=== PATIENT | male | born 1940 | race Caucasian/White ===

== ENCOUNTER → 2017-11-16 | Outpatient (CLI) | payer OTHER, BC ==
[~2017-11-16] MED LIST: AMARYL2 MG PO; AMARYL4 MG OR; AMOXICILLIN250 MG PO; ANUSOL-HC25 MG RECTAL; ASPIR 8181 MG PO; ASPIRIN EC81 M1 OR; BISACODYL SUPP10 MG RECTAL; BYSTOLIC 5 MG5 M1 PO; CENTRUM SILVER1 EAC2 PO; CITRATE OF MAG296 ML PO; COLACE100 MG PO; COREG6.25 MG PO; CYMBALTA30 MG PO; DEX4 GLUCOSE4 GM; DOXYCYCLINE 10100 MG PO; ECOTRIN325 MG PO; EXELON1 EAC1 TRANSDERM; GLUCAGON EMERGEN1 MG; HUMALOG100 UNIT/2; HYDROCODON-ACE1 EACH PO; JANUVIA100 MG OR; KEFLEX500 M1 PO; LANTUS SOL100 UNIT/1 SQ; LANTUS100 UNIT/M SUBQ; LEVEMIR100 UNIT/1 SUBQ; LIPITOR20 MG OR; LISINOPRIL10 MG OR; MAG-AL PLUS SUS30 ML PO; MOM PO; NAMENDA XR28 MG PO; NORVASC 5 MG TAB5 MG PO; NORVASC10 MG PO; NYSTATIN 1100000 U/M PO; PAXIL10 MG; PRED FORTE 1% EY5 M1 OP; REGLAN 10 MG TA10 MG PO; TOPROL XL25 MG OR; TRANSDERM-SCO1 PATC1 TD; TYLENOL325 MG PO; VITAMIN B-1100 M1 PO; VOLTAREN 0.1% EY5 M1 OP; XARELTO15 MG PO; ZOFRAN ODT4 MG SUBLING
== END ==
LOC: RAD 17:47
DX: R05 Cough (principal)

== ENCOUNTER 2017-11-21 12:33 | Emergency (ER) | payer OTHER, BC ==
[~2017-11-21] VITALS: Ht 170.2 cm; Wt 95.3 kg
[~2017-11-21 12:33] MED LIST changes: -ANUSOL-HC25 MG RECTAL; -ASPIR 8181 MG PO; -CITRATE OF MAG296 ML PO; -KEFLEX500 M1 PO; -LANTUS100 UNIT/M SUBQ; -NAMENDA XR28 MG PO
[2017-11-21] MEDS ORDERED: COLACE100 MG PO (13:20)
[2017-11-21] MEDS ORDERED: CITRATE OF MAG296 ML PO (13:32)
[2017-11-21] MEDS ORDERED: NAMENDA XR28 MG PO (13:45)
[2017-11-21] MEDS ORDERED: ASPIR 8181 MG PO (13:45)
[2017-11-21] MEDS ORDERED: LANTUS100 UNIT/M SUBQ (13:46)
[2017-11-21] MEDS ORDERED: ANUSOL-HC25 MG RECTAL (13:48)
[2017-11-21 13:57] VITALS: BP 120/56
== END 2017-11-21 13:58 | disposition home or self-care (01) ==
LOC: ER 12:33
DX: K62.89 Other specified diseases of anus and rectum (principal); K59.00 Constipation, unspecified; I10 Essential (primary) hypertension; E11.9 Type 2 diabetes mellitus without complications; E78.00 Pure hypercholesterolemia, unspecified; F10.99 Alcohol use, unspecified with unspecified alcohol-induced disorder; Z79.4 Long term (current) use of insulin; Z88.8 Allergy status to other drugs, medicaments and biological substances; Z90.49 Acquired absence of other specified parts of digestive tract

== ENCOUNTER → 2017-11-30 | Outpatient (CLI) | payer OTHER, BC ==
[~2017-11-30] MED LIST changes: +ANUSOL-HC25 MG RECTAL; +ASPIR 8181 MG PO; +CITRATE OF MAG296 ML PO; +KEFLEX500 M1 PO; +LANTUS100 UNIT/M SUBQ; +NAMENDA XR28 MG PO
== END ==
LOC: CAT 10:08
DX: N40.1 Benign prostatic hyperplasia with lower urinary tract symptoms (principal); E11.9 Type 2 diabetes mellitus without complications; I10 Essential (primary) hypertension; I25.10 Atherosclerotic heart disease of native coronary artery without angina pectoris; K21.9 Gastro-esophageal reflux disease without esophagitis; I63.9 Cerebral infarction, unspecified; Z90.49 Acquired absence of other specified parts of digestive tract

== ENCOUNTER 2017-12-01 11:04 | Inpatient (IN) | payer OTHER, BC ==
[~2017-12-01] VITALS: Ht 172.7 cm; Wt 88.0 kg
--- NOTE | ~2017-12-01 | HC ---
[facility] [place] [address] CONSULTATION Name: GALILEO MARTIN III Room #: 361-P [facility] IN ..#: [id number] Admission: 12/01/17 Attend Phys: Ricky Hastings MD Discharge: Date of : 42 Report #: [id number] THIS REPORT FOR: //name// CC: Mateus Hastings DATE OF SERVICE: 12/01/2017 REASON FOR CONSULTATION: Prostatic abscess. HISTORY OF PRESENT ILLNESS: The patient is a 77-year-old with underlying history of diabetes and mild dementia, has had issues over the last 10 days to 2 weeks of rectal discomfort. Had symptoms of urgency. was unclear whether he is having some dysuria also. The patient was unable to give me any reasonable history. He has had further evaluation including cathartics followed by colonoscopy. It was noted that he had a markedly enlarged prostate at the time of his colonoscopy. He had evidence of polyps which were removed. No fever, chills or sweats. No blood in the stool or his urine noted. No prior history of BPH. It seems that most of his symptoms were rectal related. Yesterday, a CT scan of his abdomen and pelvis, which showed evidence of enlarged prostate with suspected prostatic abscess. ALLERGIES: ETHER. MEDICATIONS: As noted on his MAR including Tylenol, Exelon patch, docusate sodium suppository, Amaryl, Coreg, Cymbalta, Lipitor, Lantus insulin, aspirin, Namenda, multivitamin. PAST MEDICAL HISTORY: Cholecystectomy, appendectomy, coronary bypass grafting, carpal tunnel release on the left, hypertension, pneumonia, diabetes, right carpal tunnel release, hyperlipidemia, nonfunctioning right kidney, left cataract, stroke, dementia. FAMILY HISTORY: Noncontributory. SOCIAL HISTORY: Nonsmoker, minimal alcohol use. REVIEW OF SYSTEMS: No headache or cardiopulmonary issues. No abdominal pain. Has been anorexic. No rash. PHYSICAL EXAMINATION: VITAL SIGNS: He is afebrile and hemodynamically stable. GENERAL: He is alert and cooperative. He was confused. HEENT: Unremarkable. NECK: Supple. SKIN: Unremarkable. [facility] [address] [place] [address] CONSULTATION Name: GALILEO MARTIN III Room #: 361-P [facility] IN [facility].#: [id number] Admission: 12/01/17 Attend Phys: Ricky Hastings MD Discharge: Date of : 42 Report #: [id number] LYMPH: Unremarkable. LUNGS: Clear. HEART: Regular without murmur. ABDOMEN: Mildly distended. Mild lower abdominal tenderness. No guarding or rebound. No mass. No CVA tenderness. RECTAL: With markedly enlarged prostate, which was fluctuant. The area was tender. Anus otherwise unremarkable. EXTREMITIES: Unremarkable. NEUROLOGIC: Nonfocal. LABORATORY STUDIES: Sodium 137, potassium 4.4, bicarb of 28, creatinine 1.9. Hemoglobin 12.6, platelet count 265,000, WBC 16 with 81% segs, 13% lymphs. Urinalysis greater than 25 wbc's, 3-10 rbc's, and 1-9 bacteria. Urine culture is pending. Postvoid residual [address] scan of the pelvis on 11/30/2017 revealed an enlarged prostate with a 1.8 x 2.7 cm right lobe abscess. IMPRESSION: Rectal pain. I am suspecting is related to prostatitis with abscess. The patient has leukocytosis and worsening mentation. He has renal failure most of which I suspect is chronic due to his nonfunctioning right kidney. The patient with underlying diabetes. PLAN: Recommend broad antibiotic coverage, adjusted for his renal failure to include Zosyn. Have Urology assist with drainage of the abscess. If they are unable to perform, would then defer to Interventional Radiology. We will obtain another urine culture post-prostatic examination. We will obtain blood cultures. Adjust his antibiotics pending these results. I have discussed the case with patient's at the bedside and nursing in attendance. Call placed to Urology for their assistance. <ELECTRONICALLY SIGNED> By: Dinh Moser MD 12/02/17 1715 03 [id number] Dinh Moser MD /nt
--- NOTE | ~2017-12-01 | H ---
[facility] [place] [address] HISTORY AND PHYSICAL Name: GALILEO MARTIN III Room #: 361-P ADM IN ..#: [id number] Admission: 12/01/17 Attend Phys: Ricky Hastings MD Discharge: Date of : 41 Report #: [id number] THIS REPORT FOR: //name// CC: Mateus Hastings DATE OF SERVICE: 12/01/2017 CHIEF COMPLAINT: Rectal pain. HISTORY OF PRESENT ILLNESS: The patient is a 77-year-old gentleman with dementia, who was admitted from home to the office with rectal pain. He underwent a CT of the abdomen and pelvis on 11/30/2017, which revealed what appears to be a prostatic abscess. He received IV antibiotics overnight and is being assessed by Dr. Webb from Urology. PAST MEDICAL HISTORY: Diabetes type 2, coronary artery disease, hypertension, osteoarthritis, rotator cuff syndrome, GERD, cerebellar stroke, mild cognitive impairment, mild dementia, BPH. PAST SURGICAL HISTORY: He has had cardiac bypass, cholecystectomy. FAMILY HISTORY: Noncontributory. SOCIAL HISTORY: No chronic alcohol or tobacco use. ALLERGIES: VALIUM. MEDICATIONS: Coreg 6.25 mg twice a day, Cymbalta 30 mg. Glimepiride 2 mg, Lantus 24 units at bedtime, galantamine 16 mg daily, Humalog 5 units with meals if over 325. Aspirin, Lipitor. Unclear whether he is taking Xarelto at home. REVIEW OF SYSTEMS: He is unable to give review. OBJECTIVE: VITAL SIGNS: Temperature 36.4, pulse 70, respirations 19, blood pressure was 159/69. GENERAL: He is awake, lying in bed, pleasantly confused, seems to recognize his , no distress. HEAD AND NECK: Unremarkable. LUNGS: Clear. HEART: Regular. ABDOMEN: Soft, normoactive bowel sounds. No rebound or guarding. EXTREMITIES: No edema. CT and lab work reviewed. [facility] [address] [place] [address] HISTORY AND PHYSICAL Name: GALILEO MARTIN III Room #: [address] [place] [address]#: [id number] Admission: 12/01/17 Attend Phys: Ricky Hastings MD Discharge: Date of : 41 Report #: [id number] ASSESSMENT: 1. Prostatic abscess. 2. Chronic kidney disease, stage 3. 3. Unilateral kidney. 4. Diabetes type 2. 5. Hypertension. 6. Senile dementia. PLAN: Antibiotics have been ordered, and I discussed the case with Dr. Dinh Moser and Dr Dmitry Webb. Workup plans are being formulated for now. We will hold any anticoagulation or antiplatelet treatment in the event he needs a surgical intervention. <ELECTRONICALLY SIGNED> By: Ricky Hastings MD 12/02/17 1300 0911 0926 Ricky Hastings MD /nt
--- NOTE | ~2017-12-01 | D ---
[facility] [place] [address] DISCHARGE SUMMARY Name: GALILEO MARTIN III Room #: 361-P ADM IN M.R.#: [id number] Admission: 12/01/17 Attend Phys: Ricky Hastings MD Discharge: Date of : 41 Report #: [id number] THIS REPORT FOR: //name// CC: Mateus Hastings FINAL DIAGNOSES: 1. Prostate abscess. 2. Hypertension. 3. Diabetes type 2. HOSPITAL COURSE: The patient was admitted with abdominal pain and an outpatient CT had revealed an abscess of the prostate. ID and Neurology assessed him and ultimately the plan was for Interventional Radiology to perform an aspiration. Please see that separately dictated report. Cultures grew Staph aureus. He was treated with antibiotics accordingly. With supportive and medical care, his symptoms improved significantly. His white count normalized. Mental status returned to baseline and his pain decreased. He was up and active at his baseline. DISPOSITION: To be discharged home to resume diabetic diet, activity as tolerated, all his usual medications plus Keflex 1 gram b.i.d. for 10 days and to follow up in the office in 1 week. <ELECTRONICALLY SIGNED> By: Ricky Hastings MD 12/06/17 1256 1238 1251 Ricky Hastings MD /nt
[~2017-12-01 11:04] MED LIST changes: -KEFLEX500 M1 PO
[2017-12-01 12:01] VITALS: BP 129/64
[2017-12-01 13:38] LABS: BASOPHILS 0.3 % (0.0-2.0); EOSINOPHILS 1.1 % (0.0-3.0); HEMATOCRIT 39.1 % (42.0-52.0); HEMOGLOBIN 12.6 gm/dL (14.0-18.0); LYMPHOCYTES 13.2 % (24.0-44.0); MCH 29.8 pg (26.0-34.0); MCHC 32.2 g/dL (28.0-37.0); MCV 92.7 fL (80.0-100.0); MONOCYTES 3.7 % (1.0-8.0); PLATELET COUNT 265 thou/uL (150-400); POLYS 81.7 % (36.0-66.0); RBC 4.21 mil/uL (4.50-6.00); RDW 13.7 % (10.5-14.5)
[2017-12-01 13:48] LABS: CALCIUM 9.9 mg/dL (8.5-10.1); CREATININE 1.9 mg/dL (0.7-1.3); POTASSIUM 4.4 mmol/L (3.5-5.1)
[2017-12-01 15:37] LABS: URINE BILIRUBIN NEGATIVE (Negative); URINE BLOOD 1+ (Negative); URINE CLARITY CLOUDY; URINE COLOR YELLOW; URINE GLUCOSE-RANDOM* TRACE (Negative); URINE KETONES NEGATIVE (Negative); URINE NITRITE-REFLEX NEGATIVE (Negative); URINE PROTEIN (DIPSTICK) 1+ (Negative); URINE SPECIFIC GRAVITY 1.025 (1.005-1.035); URINE UROBILINOGEN 0.2 E.U./dl (0.2-1.0)
[2017-12-01 15:43] LABS: URINE LEUKOCYTES-REFLEX 3+ (Negative)
[2017-12-01 15:52] LABS: URINE WBC-REFLEX >25 Many /HPF (0-5)
[2017-12-01 15:53] LABS: BACTERIA-REFLEX 1-9 Few /HPF (None Seen); CASTS None Seen /LPF (None Seen); CRYSTALS None Seen /LPF (None Seen); SQUAMOUS None Seen /LPF (0-3); URINE RBC 3-10 Few /HPF (0-2)
[2017-12-01 16:00] VITALS: BP 110/53
[2017-12-01 19:56] VITALS: BP 131/58
[2017-12-02] VITALS (9 sets, daily range): BP systolic 94–176; BP diastolic 44–98
[2017-12-02 06:28] LABS: ABSOLUTE NEUTROPHILS 13.2 thou/uL (1.4-8.2); BASOPHILS 0.5 % (0.0-2.0); EOSINOPHILS 2.5 % (0.0-3.0); HEMATOCRIT 36.1 % (42.0-52.0); HEMOGLOBIN 11.9 gm/dL (14.0-18.0); LYMPHOCYTES 15.2 % (24.0-44.0); MCH 30.5 pg (26.0-34.0); MCV 92.5 fL (80.0-100.0); MONOCYTES 4.8 % (1.0-8.0); PLATELET COUNT 258 thou/uL (150-400); RDW 13.8 % (10.5-14.5); WBC 17.1 thou/uL (4.0-11.0)
[2017-12-02 06:35] LABS: CALCIUM 9.2 mg/dL (8.5-10.1); CREATININE 1.7 mg/dL (0.7-1.3); POTASSIUM 4.2 mmol/L (3.5-5.1)
[2017-12-02 06:37] LABS: INR 1.1; PROTIME 11.1 Seconds (9.3-11.4)
[2017-12-03 04:00] VITALS: BP 131/53
[2017-12-03 05:49] LABS: HEMATOCRIT 31.8 % (42.0-52.0); HEMOGLOBIN 10.7 gm/dL (14.0-18.0); MCHC 33.6 g/dL (28.0-37.0); MCV 92.5 fL (80.0-100.0); RBC 3.44 mil/uL (4.50-6.00); RDW 14.1 % (10.5-14.5); WBC 15.4 thou/uL (4.0-11.0)
[2017-12-03 06:02] LABS: CALCIUM 8.8 mg/dL (8.5-10.1); CREATININE 1.7 mg/dL (0.7-1.3); POTASSIUM 4.2 mmol/L (3.5-5.1)
[2017-12-03 07:30] VITALS: BP 121/70
[2017-12-03 11:12] VITALS: BP 139/61
[2017-12-03 16:02] VITALS: BP 146/64
[2017-12-03 19:20] VITALS: BP 112/68
[2017-12-04 03:15] VITALS: BP 145/85
[2017-12-04 03:43] LABS: HEMATOCRIT 31.2 % (42.0-52.0); HEMOGLOBIN 10.4 gm/dL (14.0-18.0); MCH 30.8 pg (26.0-34.0); MCHC 33.4 g/dL (28.0-37.0); MCV 92.3 fL (80.0-100.0); RBC 3.38 mil/uL (4.50-6.00); RDW 13.9 % (10.5-14.5); WBC 13.4 thou/uL (4.0-11.0)
[2017-12-04 03:53] LABS: CALCIUM 8.6 mg/dL (8.5-10.1); CREATININE 1.6 mg/dL (0.7-1.3); POTASSIUM 4.6 mmol/L (3.5-5.1)
[2017-12-04 08:00] VITALS: BP 140/67
[2017-12-04 11:57] VITALS: BP 145/65
[2017-12-04 16:00] VITALS: BP 146/68
[2017-12-04 19:40] VITALS: BP 139/68
[2017-12-05 04:10] VITALS: BP 146/64
[2017-12-05 07:30] VITALS: BP 148/80
[2017-12-05 08:46] LABS: HEMATOCRIT 32.3 % (42.0-52.0); HEMOGLOBIN 10.7 gm/dL (14.0-18.0); MCH 30.6 pg (26.0-34.0); MCHC 33.1 g/dL (28.0-37.0); MCV 92.4 fL (80.0-100.0); RBC 3.49 mil/uL (4.50-6.00); RDW 14.2 % (10.5-14.5); WBC 13.5 thou/uL (4.0-11.0)
[2017-12-05 08:56] LABS: CALCIUM 8.9 mg/dL (8.5-10.1); CREATININE 1.6 mg/dL (0.7-1.3); POTASSIUM 4.2 mmol/L (3.5-5.1)
[2017-12-05 12:00] VITALS: BP 142/65
[2017-12-05 15:40] VITALS: BP 150/75
[2017-12-05 19:23] VITALS: BP 145/54
[2017-12-06 04:00] VITALS: BP 149/61
[2017-12-06 05:52] LABS: BASOPHILS 0.6 % (0.0-2.0); EOSINOPHILS 5.5 % (0.0-3.0); HEMATOCRIT 29.6 % (42.0-52.0); HEMOGLOBIN 10.1 gm/dL (14.0-18.0); LYMPHOCYTES 23.4 % (24.0-44.0); MCH 31.1 pg (26.0-34.0); MCV 91.4 fL (80.0-100.0); MONOCYTES 6.8 % (1.0-8.0); PLATELET COUNT 198 thou/uL (150-400); POLYS 63.7 % (36.0-66.0); RBC 3.23 mil/uL (4.50-6.00); RDW 14.2 % (10.5-14.5); WBC 9.4 thou/uL (4.0-11.0)
[2017-12-06 06:19] LABS: CALCIUM 8.7 mg/dL (8.5-10.1); CREATININE 1.4 mg/dL (0.7-1.3); POTASSIUM 4.1 mmol/L (3.5-5.1)
[2017-12-06 08:16] VITALS: BP 161/69
[2017-12-06 11:04] VITALS: BP 159/66
[2017-12-06] MEDS ORDERED: KEFLEX500 M1 PO (12:08)
[2017-12-06 16:25] VITALS: BP 160/74
[2017-12-06 20:40] VITALS: BP 144/63
[2017-12-07 04:20] VITALS: BP 137/70
[2017-12-07 08:07] VITALS: BP 151/72
[2017-12-07 11:27] VITALS: BP 158/70
[2017-12-07 16:17] VITALS: BP 153/69
[2017-12-07 19:26] VITALS: BP 119/59
[2017-12-08] VITALS (15 sets, daily range): BP systolic 96–176; BP diastolic 56–99
[2017-12-08 05:13] LABS: HEMATOCRIT 34.5 % (42.0-52.0); HEMOGLOBIN 11.5 gm/dL (14.0-18.0); MCH 30.6 pg (26.0-34.0); MCHC 33.4 g/dL (28.0-37.0); MCV 91.9 fL (80.0-100.0); RBC 3.76 mil/uL (4.50-6.00); RDW 14.1 % (10.5-14.5); WBC 9.7 thou/uL (4.0-11.0)
[2017-12-08 05:30] LABS: CALCIUM 9.2 mg/dL (8.5-10.1); CREATININE 1.6 mg/dL (0.7-1.3); POTASSIUM 4.2 mmol/L (3.5-5.1)
[2017-12-09 06:42] VITALS: BP 148/74
[2017-12-09 08:00] VITALS: BP 148/74
[2017-12-09 08:43] LABS: HEMATOCRIT 35.9 % (42.0-52.0); HEMOGLOBIN 11.6 gm/dL (14.0-18.0); MCH 29.9 pg (26.0-34.0); MCHC 32.3 g/dL (28.0-37.0); MCV 92.7 fL (80.0-100.0); RBC 3.87 mil/uL (4.50-6.00); RDW 13.9 % (10.5-14.5); WBC 16.6 thou/uL (4.0-11.0)
[2017-12-09 08:50] LABS: CALCIUM 9.3 mg/dL (8.5-10.1); CREATININE 1.6 mg/dL (0.7-1.3); POTASSIUM 4.6 mmol/L (3.5-5.1)
[2017-12-09 09:50] VITALS: BP 148/74
[2017-12-09 12:26] VITALS: BP 105/66
== END 2017-12-09 15:20 | disposition home or self-care (01) | DRG 713 ==
LOC: 3W 11:04 → ENTRNSPT 12-09 15:11 → EDTRNSPTSTS 12-09 15:13 → 3W 12-09 15:20
PROVIDERS: Internal Medicine; Internal Medicine Geriatric Medicine; Specialist; Urology
PROC: 0V9 Male Reproductive System, Drainage (ICD-10-PCS; 2017-12-02)
PROC: 0V508ZZ Destruction of Prostate, Via Natural or Artificial Opening Endoscopic (ICD-10-PCS; principal; 2017-12-08)
DX: N41.2 Abscess of prostate (principal); G92 Toxic encephalopathy; N39.0 Urinary tract infection, site not specified; R65.10 Systemic inflammatory response syndrome (SIRS) of non-infectious origin without acute organ dysfunction; N40.0 Benign prostatic hyperplasia without lower urinary tract symptoms; E78.5 Hyperlipidemia, unspecified; K21.9 Gastro-esophageal reflux disease without esophagitis; M19.90 Unspecified osteoarthritis, unspecified site; N18.3 Chronic kidney disease, stage 3 (moderate); I12.9 Hypertensive chronic kidney disease with stage 1 through stage 4 chronic kidney disease, or unspecified chronic kidney disease; E11.22 Type 2 diabetes mellitus with diabetic chronic kidney disease; G30.9 Alzheimer's disease, unspecified; F02.80 Dementia in other diseases classified elsewhere, unspecified severity, without behavioral disturbance, psychotic disturbance, mood disturbance, and anxiety; Z98.42 Cataract extraction status, left eye; Z86.73 Personal history of transient ischemic attack (TIA), and cerebral infarction without residual deficits; Z88.8 Allergy status to other drugs, medicaments and biological substances; Z90.49 Acquired absence of other specified parts of digestive tract; Z95.1 Presence of aortocoronary bypass graft
CPT/HCPCS: 10879; 50010; 50101; 50455; 56815; 57006; 62110; 62900; 70005

== ENCOUNTER 2017-12-15 11:58 | Inpatient (IN) | payer OTHER, BC ==
[~2017-12-15] VITALS: Ht 167.6 cm; Wt 81.6 kg
--- NOTE | ~2017-12-15 | D ---
[facility] [place] [address] DISCHARGE SUMMARY Name: GALILEO MARTIN III Room #: 429-P ADM IN .R.#: [id number] Admission: 12/15/17 Attend Phys: Mojgan Paige Discharge: Date of : 41 Report #: [id number] THIS REPORT FOR: //name// CC: Mateus Moser FINAL DIAGNOSES: 1. Orthostatic hypotension. 2. Dementia of Alzheimer's type. 3. Hypertension. 4. Diabetes type 2. 5. Chronic kidney disease. HOSPITAL COURSE: The patient was admitted after a near syncope episode at home. Telemetry echo and carotid Dopplers were unremarkable. He was found to have some mild orthostatic hypotension. I lowered his Coreg 3.125 mg twice a day and encouraged oral intake. Other medications were continued. He had no other interval complications. PHYSICAL EXAMINATION: GENERAL: On the day of discharge, he is resting comfortably in bed. VITAL SIGNS: Blood pressure was approximately 150/90 lying, but 100/70 sitting. LUNGS: Clear. HEART: Regular. ABDOMEN: Soft, normoactive bowel sounds. EXTREMITIES: No edema. DISPOSITION: He will be discharged to home with diabetic diet, activity as tolerated, resume all medications, but decrease Coreg to 6.25 mg 1/2 tablet twice a day. Follow up with Dr. Moser in a week. <ELECTRONICALLY SIGNED> By: Ricky Hastings MD 12/19/17 1256 1211 1231 MD le Rivero
--- NOTE | ~2017-12-15 | 2DMMODE ---
[facility] [address] [place] [address] 2 D/M-MODE ECHOCARDIOGRAM Name: GALILEO MARTIN III Room #: 429-P [facility] IN [facility].#: [id number] Admission: 12/15/17 Attend Phys: Mateus Oliveira Discharge: Date of : 42 Date of Service: 12/16/17 1153 Report #: [id number] THIS REPORT FOR: //name// APPROVED REPORT Study performed: 12/16/2017 11:22:56 EXAM: Comprehensive 2D, Doppler, and color-flow Echocardiogram Patient Location: Echo lab Room #: 429 Status: routine BSA: 1.91 HR: 66 bpm BP: 168/71 mmHg Rhythm: NSR Other Information Study Quality: Adequate Indications Syncope. Hx: CABG, CVA, HTN, HLP, DM 2D Dimensions RVDd: 41.00 mm LVEF(%): 67.72 (>50%) IVSd: 12.56 (7-11mm) LVOT Diam: 21.29 (18-24mm) LVDd: 48.22 mm PWd: 12.03 (7-11mm) Ascending Ao: 35.32 (22-36mm) LVDs: 30.03 (25-40mm) Aortic Root: 35.87 mm Garsia's LVEF: 67.72 % Volumes Left Atrial Volume (Systole) Single Plane 4CH: 59.68 mL Single Plane 2CH: 39.19 mL LA ESV Index: 28.00 mL/m2 Aortic Valve AoV Peak Axel.: 1.33 m/s AO Peak Gr.: 7.11 mmHg LVOT Max P.67 mmHg LVOT Max V: 0.96 m/s MEAGAN Vmax: 2.56 cm2 Mitral Valve E/A Ratio: 0.8 MV Decel. Time: 314.28 ms [facility] [place] [address] 2 D/M-MODE ECHOCARDIOGRAM Name: GALILEO MARTIN YVON Room #: 429-P [facility]..#: [id number] Admission: 12/15/17 Attend Phys: Mateus Oliveira Discharge: Date of : 42 Date of Service: 12/16/17 1153 Report #: [id number] MV E Max Axel.: 0.58 m/s MV A Axel.: 0.69 m/s MV PHT: 91.14 ms IVRT: 87.66 ms Pulmonary Valve PV Peak Axel.: 1.04 m/s PV Peak Gr.: 4.31 mmHg Pulmonary Vein P Vein S: 0.85 m/s P Vein D: 0.53 m/s P Vein S/D Ratio: 1.60 Tricuspid Valve TR Peak Axel.: 2.81 m/s RAP Estimate: 5.00 mmHg TR Peak Gr.: 31.49 mmHg PA Pressure: 37.00 mmHg Left Ventricle The left ventricle is normal size. There is normal LV segmental wall motion. Mild concentric left ventricular hypertrophy. Left ventricular systolic function is normal. LVEF is 60-65%. Mild diastolic dysfunction is present (impaired relaxation pattern). Right Ventricle The right ventricle is normal size. The right ventricular systolic function is normal. Atria The left atrium size is normal. The right atrium size is normal. Aortic Valve Aortic valve is milldly thickened and calcified. No aortic regurgitation is present. There is no aortic valvular stenosis. Mitral Valve The mitral valve is normal in structure. Trace mitral regurgitation. Tricuspid Valve The tricuspid valve is normal in structure. Mild tricuspid regurgitation. Estimated PAP is 35-40mmHg. [address] [address] 2 D/M-MODE ECHOCARDIOGRAM Name: GALILEO MARTIN III Room #: 429-P [facility] IN ..#: [id number] Admission: 12/15/17 Attend Phys: Mateus Oliveira Discharge: Date of : 42 Date of Service: 12/16/17 1153 Report #: [id number] Pulmonic Valve The pulmonary valve is normal in structure. Mild pulmonic regurgitation. Great Vessels The aortic root is normal in size. The ascending aorta is normal in size. IVC is normal in size and collapses >50% with inspiration. Pericardium There is no pericardial effusion. <Conclusion> The left ventricle is normal size. LVEF is 60-65%. Mild diastolic dysfunction is present (impaired relaxation pattern). The right ventricle is normal size. The left atrium size is normal. Aortic valve is milldly thickened and calcified. There is no aortic valvular stenosis. Trace mitral regurgitation. Mild tricuspid regurgitation. Estimated PAP is 35-40mmHg. The aortic root is normal in size. There is no pericardial effusion. <ELECTRONICALLY SIGNED> By: Jose Jackson MD, FACC 12/16/17 1153 1153 1153 Jose Jackson MD, FACC /INF
--- NOTE | ~2017-12-15 | H ---
[facility] [place] [address] HISTORY AND PHYSICAL Name: GALILEO MARTIN III Room #: 429-P ADM IN M.R.#: [id number] Admission: 12/15/17 Attend Phys: Mojgan Paige Discharge: Date of : 41 Report #: [id number] THIS REPORT FOR: //name// CC: Mateus Moser DATE OF SERVICE: 12/15/2017 CHIEF COMPLAINT: Weakness and a fainting episode. HISTORY OF PRESENT ILLNESS: The patient is a 77-year-old gentleman who came to the Emergency Room with his after what sounds to be a near syncope episode at home. 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 She said he had been lying in bed as she was preparing for work. His noted that when he came into the bathroom, he had sort of a glazed look on his face and appeared unsteady. She handed the medications to him and he began to drop them on the floor. He was not talking, but his eyes were open, but he was not focused. His grabbed him as it appears that she thought he was going to fall and eventually, she helped lower him to the floor. She thinks there may have just been a minute or two where he was not verbally responding, although alert. She does not feel that he totally lost consciousness during this episode. However, he was very weak and she brought him to the Emergency Room. He was hospitalized 1 week ago for a prostate abscess due to methicillin-sensitive Staphylococcus aureus. He had a needle aspiration followed by modified TURP procedure by Urology. He was discharged home about a week ago with oral antibiotics. PAST MEDICAL HISTORY: Cerebrovascular disease with prior stroke about 2 years ago, vascular dementia, hypertension, diabetes type 2, dyslipidemia and coronary artery disease. PAST SURGICAL HISTORY: Cardiac bypass in 2005, carpal tunnel release, cholecystectomy and appendectomy. He had a colonoscopy in November of this year. FAMILY HISTORY: Unknown. SOCIAL HISTORY: He is and lives with his . No chronic alcohol or tobacco use. ALLERGIES: ETHER AND DIAZEPAM. MEDICATIONS: Keflex, Namenda, aspirin, Lantus, Lipitor, Cymbalta, Coreg, Amaryl and Exelon patch. REVIEW OF SYSTEMS: He denies any headache, chest pain, shortness of breath or [facility] [address] [place] [address] HISTORY AND PHYSICAL Name: GALILEO MARTIN III Room #: 429-P [facility] IN [facility]#: [id number] Admission: 12/15/17 Attend Phys: Mojgan Paige Discharge: Date of : 42 Report #: [id number] abdominal pain, but otherwise, is pleasantly confused. PHYSICAL EXAMINATION: VITAL SIGNS: Temperature 36.8, pulse 86, respirations 18, blood pressure 168/71 and O2 sat 96% on room air. GENERAL: He is awake and alert, in no distress. HEAD AND NECK: Unremarkable. LUNGS: Clear. HEART: Regular. ABDOMEN: Soft. Normoactive bowel sounds. EXTREMITIES: No edema. NEUROLOGIC: He moves all extremities equally. Global strength appears intact, 5/5. He is alert, seems to recognize me. He answers questions appropriately, but not oriented to the date, place or situation. LABORATORY DATA: Blood sugars are between 150 and 350. Urinalysis had some blood, red cells and a few white cells. White count is normal, hemoglobin normal. Creatinine 1.7. Albumin 3.1. ASSESSMENT: 1. Syncope. 2. Chronic kidney disease, stage 3. 3. Hypertension. 4. Diabetes type 2. 5. Senile dementia, probably vascular type. 6. Cerebrovascular disease with history of stroke 2 years ago. 7. Recent prostate abscess. 8. Mild protein-calorie malnutrition. Albumin 3.1. PLAN: I will continue his medications from home. I spoke to his at the bedside. So far telemetry overnight has been unremarkable. I will ask for an echocardiogram and carotid Dopplers to ensure no other lesion precipitating possible syncope. He continues with oral antibiotics from last week. If no other new vascular episode or vascular process identified, then could anticipate an early discharge home. <ELECTRONICALLY SIGNED> By: Ricky Hastings MD 12/16/17 1253 0959 1017 Ricky Hastings MD /nt
--- NOTE | ~2017-12-15 | EKG ---
[address] [place] [address] ELECTROCARDIOGRAM REPORT Name: GALILEO MARTIN III Room #: 429-P ADM IN M.R.#: [id number] Admission: 12/15/17 Attend Phys: Mojgan Paige Discharge: Date of : 42 Report #: [id number] THIS REPORT FOR: //name// [facility] ED Test Date: 2017-12-15 Test Time: 12:11:35 Pat Name: GALILEO MARTIN Department: Room: 429 Gender: M Occupational Therapy Manager: JAYESH : 1940 Requested By: Pato Beyer Order Number: [id number] MD: Zuhair Husain Measurements Intervals [place] Rate: 59 P: -23 ME: 121 QRS: 17 QRSD: 102 T: 8 QT: 429 QTc: 425 Interpretive Statements Sinus rhythm Multiple ventricular premature complexes Compared to ECG 12/10/2015 10:23:34 Ventricular premature complex(es) now present ST (T wave) deviation no longer present Electronically Signed On 12-15-2017 16:12:37 CDT by Zuhair Husain [email or web address] <ELECTRONICALLY SIGNED> By: Zuhair Husain MD 12/15/17 1612 121 1211 Zuhair Husain MD /EPI
[~2017-12-15 11:58] MED LIST changes: +KEFLEX500 M1 PO
[2017-12-15 12:04] VITALS: BP 115/52
[2017-12-15 12:29] LABS: ABSOLUTE NEUTROPHILS 6.1 thou/uL (1.4-8.2); BASOPHILS 1.4 % (0.0-2.0); EOSINOPHILS 1.6 % (0.0-3.0); HEMATOCRIT 36.7 % (42.0-52.0); HEMOGLOBIN 12.1 gm/dL (14.0-18.0); LYMPHOCYTES 24.7 % (24.0-44.0); MCH 30.9 pg (26.0-34.0); MCV 93.6 fL (80.0-100.0); PLATELET COUNT 247 thou/uL (150-400); POLYS 66.3 % (36.0-66.0); RBC 3.92 mil/uL (4.50-6.00); RDW 14.7 % (10.5-14.5); WBC 9.1 thou/uL (4.0-11.0)
[2017-12-15 12:37] LABS: ANION GAP 4 mmol/L (7-16); BUN 24 mg/dL (7-18); CALCIUM 9.4 mg/dL (8.5-10.1); CHLORIDE 105 mmol/L (98-107); CO2 30 mmol/L (21-32); CREATININE 1.7 mg/dL (0.7-1.3); GLUCOSE 165 mg/dL (74-106); POTASSIUM 4.6 mmol/L (3.5-5.1); SODIUM 139 mmol/L (136-145)
[2017-12-15 12:45] LABS: ALBUMIN 3.1 g/dL (3.4-5.0); MAGNESIUM 2.2 mg/dL (1.8-2.4); SGOT 32 U/L (15-37); SGPT 33 U/L (30-65); TOTAL BILIRUBIN 0.5 mg/dL (<0.1-1.0); TOTAL PROTEIN 6.7 g/dL (6.4-8.2); TROPONIN-I < 0.04 ng/mL (<0.06)
[2017-12-15 13:38] LABS: URINE BILIRUBIN NEGATIVE (Negative); URINE BLOOD 3+ (Negative); URINE COLOR YELLOW; URINE GLUCOSE-RANDOM* NEGATIVE (Negative); URINE KETONES NEGATIVE (Negative); URINE NITRITE-REFLEX NEGATIVE (Negative); URINE PROTEIN (DIPSTICK) 2+ (Negative); URINE SPECIFIC GRAVITY 1.025 (1.005-1.035); URINE UROBILINOGEN 0.2 E.U./dl (0.2-1.0)
[2017-12-15 13:39] LABS: URINE CLARITY SLIGHTLY CLOUDY; URINE LEUKOCYTES-REFLEX TRACE (Negative)
[2017-12-15 13:46] LABS: URINE RBC >20 Many /HPF (0-2)
[2017-12-15 13:47] LABS: CASTS None Seen /LPF (None Seen); SQUAMOUS None Seen /LPF (0-3)
[2017-12-15 13:48] LABS: CRYSTALS None Seen /LPF (None Seen)
[2017-12-15 14:07] VITALS: BP 115/52
[2017-12-15 14:55] VITALS: BP 117/57
[2017-12-15 16:12] VITALS: BP 124/50
[2017-12-15 20:21] VITALS: BP 130/50
[2017-12-16 07:03] VITALS: BP 168/71
[2017-12-16 11:10] VITALS: BP 127/63
[2017-12-16 11:11] VITALS: BP 118/62
[2017-12-16 11:12] VITALS: BP 104/59
[2017-12-16 15:35] VITALS: BP 110/55
[2017-12-16 20:28] VITALS: BP 130/54
[2017-12-17] VITALS (8 sets, daily range): BP systolic 88–159; BP diastolic 42–86
[2017-12-18 04:00] VITALS: BP 156/75
[2017-12-18 09:28] VITALS: BP 102/50
[2017-12-18 15:19] VITALS: BP 132/64
[2017-12-18 20:00] VITALS: BP 166/74
[2017-12-19 06:00] VITALS: BP 101/79
[2017-12-19 08:22] VITALS: BP 157/74
[2017-12-19 14:07] VITALS: BP 157/74
== END 2017-12-19 14:45 | disposition home or self-care (01) | DRG 312 ==
LOC: ER 11:58 → 4E 13:58 → EROBS 13:58 → 4E 15:21 → ENTRNSPT 12-19 14:32 → EDTRNSPTSTS 12-19 14:35 → 4E 12-19 14:45
PROVIDERS: Emergency Medicine
DX: I95.1 Orthostatic hypotension (principal); N39.0 Urinary tract infection, site not specified; E44.1 Mild protein-calorie malnutrition; E78.00 Pure hypercholesterolemia, unspecified; G30.9 Alzheimer's disease, unspecified; F02.80 Dementia in other diseases classified elsewhere, unspecified severity, without behavioral disturbance, psychotic disturbance, mood disturbance, and anxiety; E78.5 Hyperlipidemia, unspecified; I12.9 Hypertensive chronic kidney disease with stage 1 through stage 4 chronic kidney disease, or unspecified chronic kidney disease; E11.22 Type 2 diabetes mellitus with diabetic chronic kidney disease; I25.10 Atherosclerotic heart disease of native coronary artery without angina pectoris; N18.3 Chronic kidney disease, stage 3 (moderate); Z79.82 Long term (current) use of aspirin; Z90.49 Acquired absence of other specified parts of digestive tract; Z98.42 Cataract extraction status, left eye; Z86.73 Personal history of transient ischemic attack (TIA), and cerebral infarction without residual deficits; Z88.8 Allergy status to other drugs, medicaments and biological substances; Z79.899 Other long term (current) drug therapy; Z95.1 Presence of aortocoronary bypass graft; Z68.29 Body mass index [BMI] 29.0-29.9, adult
CPT/HCPCS: 10183